=== PATIENT | female | born 1975 | race Caucasian/White ===

== ENCOUNTER 2019-03-19 07:52 | Outpatient (CLI) | payer BC ==
--- NOTE | 2019-03-19 09:40 | MRI ---
MRI RIGHT KNEE WITHOUT CONTRAST: HISTORY: Knee pain and injury after skiing, M22.91, internal derangement of right knee. COMPARISON: None. FINDINGS: Medial meniscus: Intact. Lateral meniscus: Intact. The anterior cruciate ligament is ruptured proximally. Posterior cruciate ligament is intact. The medial collateral ligament proper is ruptured at its medial femoral supracondylar origin for a le ngth of nearly 2 cm of completely torn fibers. The posterior oblique ligament is ruptured at the lev el of the knee joint with a small 3-4 mm gap. The distal MCL insertion is intact. The MCL is thinne r. The biceps tendon is intact. The lateral collateral ligament is intact. Popliteus is intact. Extensor mechanism: Quadriceps tendon, patella, and patella tendon are intact. Cartilage: Patellofemoral compartment: There are multifocal 75% chondral fissures of the lateral patellar facet without subcortical reactive marrow changes. Medial compartment: Intact. Lateral compartment: Intact. Bones: There is a subcortical contusion of the submeniscal posterior lateral tibial plateau. No con tusion of the lateral condylar sulcus. Soft tissues: Moderate joint effusion. No definite free bodies are appreciated. There are extensiv e areas of capsular fluid along the lateral knee. The arcuate ligament is torn. The popliteal fibul ar ligament has a partial tear. There are high-grade partial tears of the lateral meniscal femoral and meniscal tibial ligaments. IMPRESSION: 1. Full-thickness rupture proximal fibers anterior cruciate ligament. 2. Full-thickness tear of the proximal 2 cm medial collateral ligament proper with extensive tearing throughout the proximal 2 cm no normal ligament appreciated. 3. Full thickness tear of the mid fibers of the posterior oblique ligament at the level of the knee joint with a 3-4 mm gap. 4. No medial collateral ligament client service professional. 5. Partial tear of the arcuate and popliteal fibular ligament with intact bilateral collateral ligam ent and biceps tendon insertions. 6. Impaction fractures posterolateral lateral submeniscal lateral tibial plateau, indicating a valgu s injury. 7. 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 POS: [facility]
== END 2019-03-19 07:53 | disposition home or self-care (01) ==
LOC: BICMRI 07:52
PROVIDERS: ATTEND Orthopaedic Surgery
DX: M23.91 Unspecified internal derangement of right knee (principal); S83.411A Sprain of medial collateral ligament of right knee, initial encounter

== ENCOUNTER 2019-03-27 15:56 | Outpatient (CLI) | payer BC ==
--- NOTE | 2019-03-27 17:25 | ULT ---
RIGHT LOWER EXTREMITY VENOUS DUPLEX EXAM: 03/27/19 INDICATIONS: Right lower extremity pain and edema. Deep veins of the right lower extremity evaluated with color Doppler, ultrasound and compression. Spe ctral analysis. FINDINGS: Deep veins of the right lower extremity show normal blood flow and compression. No evidence of DVT. IMPRESSION: No evidence of right lower extremity DVT. POS: [facility]
== END 2019-03-27 15:57 | disposition home or self-care (01) ==
LOC: SCSULT 15:56
PROVIDERS: ATTEND Orthopaedic Surgery
DX: M79.661 Pain in right lower leg (principal); M25.561 Pain in right knee; M25.461 Effusion, right knee

== ENCOUNTER 2019-04-21 07:43 | Outpatient (CLI) | payer BC ==
[2019-04-21 11:18] LABS: Mean Corpuscular HGB CONC 35.4 g/dL (32.0-36.0); Mean Corpuscular Hemoglobin 32.5 pg (27.0-31.0); Mean Corpuscular Volume 91.7 fL (78.0-98.0); Mean Platelet Volume 6.6 fL (7.4-10.4); Platelet Count 299 thou/uL (130-400); RBC Distribution Width 12.2 % (11.5-14.5); White Blood Cell (WBC) Count 9.6 thou/uL (4.8-10.8)
[2019-04-21 11:44] LABS: Anion Gap 9 mmol/L (10-20); BUN (Urea Nitrogen) 12 mg/dL (7.0-18.7); Calc. Creatinine Clearance 0 mL/min (70-130); Calcium 9.4 mg/dL (7.8-10.44); Carbon Dioxide 29 mmol/L (22-29); Chloride 104 mmol/L (98-107); Estimated GFR-MDRD Greater than 90; Glucose 90 mg/dL (70-105); Potassium 4.1 mmol/L (3.5-5.1); Sodium 138 mmol/L (136-145)
--- NOTE | 2019-04-21 16:49 | EKG ---
Test Reason : Blood Pressure : / mmHG Vent. Rate : 079 BPM Atrial Rate : 079 BPM P-R Int : 156 ms QRS Dur : 088 ms QT Int : 400 ms P-R-T Axes : 066 079 066 degrees QTc Int : 458 ms Normal sinus rhythm Normal ECG Confirmed by CYNTHIA VILLATORO ([id number]) on 04/21/2019 4:49:12 PM Referred By: IERO Confirmed By:CYNTHIA VILLATORO
== END 2019-04-21 07:44 | disposition home or self-care (01) ==
LOC: LABBT 07:43
PROVIDERS: ATTEND Orthopaedic Surgery
DX: Z01.818 Encounter for other preprocedural examination (principal); S83.511A Sprain of anterior cruciate ligament of right knee, initial encounter
CPT/HCPCS: 80048; 85027; 93005; 93010

== ENCOUNTER 2019-04-23 06:10 | Observation (INO) | payer BC ==
[2019-04-21 09:28] VITALS: BMI 32.5
[2019-04-23] MEDS ORDERED: Fentanyl 100 MCG/2 ML VIAL ONE ×2 (06:31→07:12)
[2019-04-23] MEDS ORDERED: Midazolam HCl 2 mg/2 ml Vial ONE (06:31)
[2019-04-23] MEDS ORDERED: Ondansetron PF 4 MG/2 ML Vial IVP PRN ×2 (07:52→08:19)
[2019-04-23] MEDS ORDERED: Morphine 4 MG/ML VIAL SLOW IVP PRN (07:52)
[2019-04-23] MEDS ORDERED: Milk Of Magnesia 30 ML UDCUP PO PRN (07:52)
[2019-04-23] MEDS ORDERED: Methocarbamol 500 MG TAB PO PRN (07:52)
[2019-04-23] MEDS ORDERED: HYDROcodone/Acetaminophen 7.5/325 mg Tablet PO PRN ×2 (07:52)
[2019-04-23] MEDS ORDERED: diphenhydrAMINE 50 MG CAP PO PRN (07:52)
[2019-04-23] MEDS ORDERED: Acetaminophen 500 MG TAB PO PRN (07:52)
[2019-04-23] MEDS ORDERED: Bisacodyl 10 MG SUPP PR PRN (07:52)
[2019-04-23] MEDS ORDERED: traMADol HCl 50 MG TAB PO PRN ×3 (07:52→08:19)
[2019-04-23] MEDS ORDERED: Morphine 2 MG/ML SYRINGE SLOW IVP PRN (07:52)
[2019-04-23] MEDS ORDERED: Ropivacaine HCl/PF 250 ML in Premix Bag 1 BAG NERVE BLCK SCH (08:19)
[2019-04-23] MEDS ORDERED: HYDROcodone/Acetaminophen 10/325 mg Tablet PO PRN ×2 (08:19)
[2019-04-23] MEDS ORDERED: Promethazine HCl 25 MG/ML VIAL IM PRN (08:19)
[2019-04-23] MEDS ORDERED: Zolpidem Tartrate 5 MG TAB PO PRN (08:19)
[2019-04-23] MEDS ORDERED: Acetaminophen 325 MG TAB PO PRN (08:19)
[2019-04-23] MEDS ORDERED: Fentanyl 100 MCG/2 ML VIAL SLOW IVP PRN (08:20)
--- NOTE | 2019-04-23 09:25 | OP ---
DATE OF PROCEDURE: 04/23/2019 PREOPERATIVE DIAGNOSES: Right knee anterior cruciate ligament tear and grade 2 medial collateral ligament injury. POSTOPERATIVE DIAGNOSES: 1. Right knee anterior cruciate ligament tear and grade 2 medial collateral ligament injury. 2. Loose body, lateral compartment greater than 1 cm. BELLSTAND ATTENDANT: Quincy Godfrey PA-C ESTIMATED BLOOD LOSS: Minimal. COMPLICATIONS: None. ANESTHESIA: The patient did have a general anesthetic as well as a block preoperatively. IMPLANTS: We used an 8 x 25 metal interference screw on the femur. We used a bicortical screw with a soft tissue washer on the tibia. We also used a 10 x 30 mm Bio[employer]posite interference screw in the tibial tunnel. DISPOSITION: She went to recovery room in stable condition. INDICATIONS: This is a 44-year-old female, who injured her knee while skiing, and at this time, she wished to have her knee reconstructed secondary to her activity level. DESCRIPTION OF PROCEDURE: After all appropriate consent forms were explained and signed, she was taken back to the operative room and at this time was given general anesthetic. Once the level of anesthesia was appropriate, an exam under anesthesia was performed confirming a positive Duncan and a grade 2 opening when testing her MCL. She did have a good endpoint. At this time, a tourniquet was placed on the right thigh and leg was placed in arthroscopic leg pina. The limb was then prepped and draped in standard surgical fashion. The limb was exsanguinated and tourniquet was taken to 300 mmHg. Inferolateral portal was established. Scope was placed into the knee joint. A needle localization technique was then used to make a medial working portal. Diagnostic arthroscopy commenced in the notch. The ACL was found to be torn. PCL was intact. Remnant of the ACL was removed at this time. The medial compartment was evaluated and found to be intact including the femur and tibial cartilage as well as the medial meniscus itself. The medial gutter was also evaluated at this time. There was no sign of any injury. At this time, there was no ecchymosis noted indicating a good healing. At this time, we went to the lateral compartment. The tibia was in good condition. The femur was in good condition. The meniscus was in good condition and we teased out a loose cartilage body that was a centimeter long from the popliteal hiatus. This was removed with a suction shaver device. At this time, we went through both medial and lateral gutters one more time, finding no loose bodies. We went to patellofemoral joint. The patellofemoral joint was found to be in good condition as well. At this time, making sure that there were no more loose bodies, we went into the posterolateral compartment of the knee as well as placing the scope into the medial portal and going into the posterior medial compartment of the knee. Once we were confirmed that there were no more loose bodies noted, the scope was placed back into the lateral compartment and a notchplasty was performed in standard fashion. Once this was done, we then placed our [id number] guide through the medial portal, placed a pin up and out the anterolateral thigh. 11-mm reamer was then used to ream our tunnel to a depth of 30. All loose bony cartilaginous debris was removed from the knee joint. At this time, we used 11-mm dilator to dilate our femoral tunnel. We then turned our attention to the tibial canal. Tibial guide set at 52.5 degrees was placed into the knee. The pin was placed up into the knee joint. Again, 11-mm reamer was used to ream our tunnel. Red rasp and nellie were used to smooth off any sharp edges and we then dilated our tibial tunnel. The Achilles allograft, which had been prepared on the back table had a bone plug, which was 11 x 20, and at this time, we flexed the knee up and used our long pin up and out the anterolateral thigh using this to pull our passing suture up into the knee joint. This was pulled down the tibial tunnel and our graft was pulled up into place. An 8 x 25 metal interference screw was used to fixate our femoral side. We then, in full extension and posterior drawer being applied, placed a 10 x 30 mm BioComposite screw up the tibial tunnel. The scope was placed back into the knee joint to make sure that the screw was not visible and it was not. At this time, we also took the knee through range of motion, making sure there was no impingement in full extension or flexion. The patient's knee went into nearly 5 degrees of hyperextension. Scope was then removed. Knee was drained. We then drilled, tapped and placed our backup fixation, which was a bicortical screw with a soft tissue washer fixating our graft at a second position. All excess graft was removed at this point. We then closed our incisions with deep Vicryl, 2-0 Vicryl and closed our incisions with sutures. At this time, a bulky sterile dressing was applied. Tourniquet was let down. Toes pinked up nicely. The patient was then awakened. She was taken to the recovery room in stable condition. All counts were correct at the end of the case and she did receive preoperative IV antibiotics. Job ID: [id number]
[2019-04-23] MEDS ORDERED: Lidocaine 1% PF 5 ML VIAL ONE (11:22)
[2019-04-23] MEDS ORDERED: Ketorolac Tromethamine 30 MG/ML VIAL ONE (11:22)
[2019-04-23] MEDS ORDERED: Ondansetron PF 4 MG/2 ML Vial ONE (11:22)
[2019-04-23] MEDS ORDERED: Ropivacaine 0.2% HCl/PF (40 MG/20 ML VIAL) ONE (11:22)
[2019-04-23] MEDS ORDERED: Dexamethasone 20 MG/5 ML VIAL ONE (11:22)
[2019-04-23] MEDS ORDERED: PROPOFOL 200 MG/20 ML VIAL ONE (11:22)
[2019-04-23] MEDS ORDERED: Ropivacaine 0.5% HCl/PF (150 MG/30 ML VIAL) ONE (11:22)
[2019-04-23] MEDS: DULoxetine 30 MG CAP PO SCH (11:54)
[2019-04-23] MEDS: Famotidine 20 MG TAB PO SCH ×2 (11:54→20:04)
[2019-04-23] MEDS: Dextrose 5 %-0.45 % NaCl 1,000 ML IV SCH ×2 (11:54→18:24)
[2019-04-23] MEDS ORDERED: Ketorolac Tromethamine 30 MG/ML VIAL IVP SCH (12:00)
[2019-04-23] MEDS: Ketorolac Tromethamine 30 MG/ML VIAL IVP SCH ×2 (15:44→20:03)
[2019-04-23] MEDS: CEFAZOLIN 2 GM in Premix Bag 1 BAG IVPB SCH ×2 (15:44→22:56)
[2019-04-23] MEDS ORDERED: Enoxaparin Sodium 40 MG/0.4 ML SYRINGE SC SCH (18:00)
[2019-04-24] MEDS: Ketorolac Tromethamine 30 MG/ML VIAL IVP SCH ×2 (02:23→08:34)
[2019-04-24] MEDS: Dextrose 5 %-0.45 % NaCl 1,000 ML IV SCH (06:09)
[2019-04-24] MEDS: DULoxetine 30 MG CAP PO SCH (08:34)
[2019-04-24] MEDS: Famotidine 20 MG TAB PO SCH (08:34)
[2019-04-24 10:57] VITALS: BP 127/80; TEMP 97.7
[2019-04-24] MEDS ORDERED: Ropivacaine 0.2% 550 ML 550 ML NERVE BLCK SCH (11:00)
--- NOTE | 2019-04-24 12:50 | PRG ---
DATE OF SERVICE: 04/24/2019 This is Slime Schulte PA-C dictating a report for Dhaval Young MD. Short-Stay Summary SUBJECTIVE: The patient is status post right ACL reconstruction postop day #1. She did well overnight. Pain is controlled. She does have a block on the right side. This is being managed by anesthesia. Cryo Cuff also present in the right lower extremity. She has worked well with physical therapy. Touchdown weightbearing. She does state that she prefers a walker over crutches and this is being ordered by Case Management at this time. No complaints. OBJECTIVE: VITAL SIGNS: Shows temperature of 97.7, pulse of 64, respiratory rate of 14, blood pressure 127/80, and O2 saturation of 100% on room air. GENERAL: The patient is awake and alert. She is in no apparent distress. She is sitting up in bed. She does have a Cryo Cuff present overlying an Milan wrap, which is a surgical bandage. This is clean, dry, and intact. Distal neurovascular status is intact. ASSESSMENT: Status post anterior cruciate ligament reconstruction, right knee, postoperative day #1. PLAN: At this time, the patient will be discharged home. Discharge instructions have been discussed with her today. She verbalized understanding and states she does not have any questions. She will follow up with Dr. Young as scheduled. Once the walker arrives from case management, the nursing staff can discharge her home. Job ID: [id number]
== END 2019-04-24 13:45 | disposition home or self-care (01) ==
LOC: SDC 06:10 → SURG A 11:21
PROVIDERS: ADMIT Orthopaedic Surgery; ATTEND Orthopaedic Surgery
PROC: 0MQN4ZZ Repair Right Knee Bursa and Ligament, Percutaneous Endoscopic Approach (ICD-10-PCS; principal; 2019-04-23)
DX: S83.511A Sprain of anterior cruciate ligament of right knee, initial encounter (principal); S83.411A Sprain of medial collateral ligament of right knee, initial encounter; F41.9 Anxiety disorder, unspecified; X58.XXXA Exposure to other specified factors, initial encounter; Y93.23 Activity, snow (alpine) (downhill) skiing, snowboarding, sledding, tobogganing and snow tubing
CPT/HCPCS: 96372; 96375; 96376; C1713; G0378; J0690; J1100; J1650; J1885; J2001; J2250; J2405; J2704; J2795; J3010

== ENCOUNTER 2020-09-10 08:19 | Outpatient (CLI) | payer BC | END 2020-09-10 08:20 | disposition home or self-care (01) | LOC: BICMAMMO 08:19 | PROVIDERS: ATTEND Physician Assistant | DX: Z12.31 Encounter for screening mammogram for malignant neoplasm of breast (principal); Z80.3 Family history of malignant neoplasm of breast | CPT/HCPCS: 77063; 77067 ==

== ENCOUNTER 2021-09-21 10:54 | Outpatient (CLI) | payer BC | END 2021-09-21 10:55 | disposition home or self-care (01) | LOC: BICULT 10:54 | PROVIDERS: ATTEND Physician Assistant | DX: Z12.31 Encounter for screening mammogram for malignant neoplasm of breast (principal); N94.10 Unspecified dyspareunia; D25.1 Intramural leiomyoma of uterus | CPT/HCPCS: 76856; 77063; 77067 ==